=== PATIENT | male | born 1955 ===

== ENCOUNTER → 2018-10-10 | Outpatient (CLI) | payer BC | END | disposition home or self-care (01) | LOC: LAB EV 10:35 → LAB SHORT 10:35 | DX: N39.0 Urinary tract infection, site not specified (principal) | CPT/HCPCS: 87086 ==

== ENCOUNTER → 2021-04-14 | Outpatient (CLI) | payer BC | END | disposition home or self-care (01) | LOC: LAB SHORT 12:47 → PLD 12:47 | DX: D07.1 Carcinoma in situ of vulva (principal) | CPT/HCPCS: 88305 ==

== ENCOUNTER → 2021-04-16 | Outpatient (CLI) | payer BC ==
[2021-04-21 15:08] LABS: HPV 16 Negative (Negative); HPV 18 Negative (Negative); HPV OTHER HR TYPES Negative (Negative)
[2021-04-23 08:30] LABS: SPECIMEN TYPE: ANAL
== END | disposition home or self-care (01) ==
LOC: LAB SHORT 17:59
PROVIDERS: Obstetrics & Gynecology
DX: Z01.419 Encounter for gynecological examination (general) (routine) without abnormal findings (principal); D07.1 Carcinoma in situ of vulva
CPT/HCPCS: 87624; G0123

== ENCOUNTER → 2021-07-14 | Outpatient (CLI) | payer BC | LOC: LAB 18:47 → LAB SHORT 18:47 | DX: L03.317 Cellulitis of buttock (principal) | CPT/HCPCS: 87070; 87205 ==

== ENCOUNTER 2022-01-18 11:37 | Day surgery (SDC) | payer BC ==
[~2022-01-18] VITALS: Ht 165.1 cm; Wt 84.3 kg
[~2022-01-18 11:37] MED LIST: ERGO50000 PO; IBUP800 PO; LEVSOD25 PO; MAG-OXIDE MAGN200 MG PO
== END 2022-01-18 14:20 | disposition home or self-care (01) ==
LOC: ORSCSDS 11:37
PROVIDERS: Internal Medicine Gastroenterology
PROC: 0DBK8ZX Excision of Ascending Colon, Via Natural or Artificial Opening Endoscopic, Diagnostic (ICD-10-PCS; principal; 2022-01-18 13:00)
DX: Z12.11 Encounter for screening for malignant neoplasm of colon (principal); D12.2 Benign neoplasm of ascending colon; Z87.891 Personal history of nicotine dependence; E66.9 Obesity, unspecified; Z68.31 Body mass index [BMI] 31.0-31.9, adult; Z79.899 Other long term (current) drug therapy
CPT/HCPCS: 88305; J2704; J7120

== ENCOUNTER 2022-10-29 08:50 | Emergency (ER) | payer BC ==
[~2022-10-29] VITALS: Ht 165.1 cm; Wt 87.1 kg
[2022-10-29 10:35] VITALS: BP 122/72
[2022-11-04] MEDS ORDERED: HYDHCL25 (07:00)
== END 2022-10-29 10:35 | disposition home or self-care (01) ==
LOC: ER 08:50
DX: T16.2XXA Foreign body in left ear, initial encounter (principal); Z88.1 Allergy status to other antibiotic agents; Z79.899 Other long term (current) drug therapy
CPT/HCPCS: 69209; 99282-25

== ENCOUNTER 2022-11-11 06:38 | Day surgery (SDC) | payer BC ==
[~2022-11-11] VITALS: Ht 165.1 cm; Wt 88.8 kg
[~2022-11-11 06:38] MED LIST changes: +HYDHCL25
--- NOTE | 2022-11-11 06:58 | NUR ---
11/11/22 0658 Loretta Anand AT 0611 PLEDGET AT 0632
[2022-11-11 08:21] VITALS: BP 136/74
== END 2022-11-11 08:37 | disposition home or self-care (01) ==
LOC: ORSCSDS 06:38
PROVIDERS: Ophthalmology
PROC: 08RK3JZ Replacement of Left Lens with Synthetic Substitute, Percutaneous Approach (ICD-10-PCS; principal; 2022-11-11 08:00)
DX: H25.12 Age-related nuclear cataract, left eye (principal); Z96.1 Presence of intraocular lens; E03.9 Hypothyroidism, unspecified; G47.33 Obstructive sleep apnea (adult) (pediatric); Z87.891 Personal history of nicotine dependence; K21.9 Gastro-esophageal reflux disease without esophagitis; Z79.899 Other long term (current) drug therapy
CPT/HCPCS: A9270; J2001; J2250; J3010; J3301; J7040; V2632